=== PATIENT | male | born 1950 | race Caucasian/White ===

== ENCOUNTER 2024-04-25 19:56 | Inpatient (IN) | payer MEDICARE, MEDICAID ==
[~2024-04-25] VITALS: Ht 170.2 cm; Wt 113.9 kg
[2024-04-25 21:37] LABS: BASOPHILS % 0.8 % (0.0-2.0); DIFFERENTIAL COMMENT 0; EOSINOPHILS % 1.9 % (0.0-5.0); HEMATOCRIT. 27.3 % (42.0-52.0); HEMOGLOBIN. 8.3 g/dL (14.0-18.0); LYMPHOCYTES % 24.9 % (20.0-50.0); MEAN CORPUSCULAR HEMOGLOBIN 24.2 pg (28.0-32.0); MEAN CORPUSCULAR HGB CONC 30.3 g/dL (31.0-37.0); MEAN CORPUSCULAR VOLUME 79.6 fL (80.0-94.0); MONOCYTES % 7.7 % (2.0-8.0); NEUTROPHILS % 64.7 % (40.0-76.0); PLATELET 299 x1000/uL (130-400); RED BLOOD CELL COUNT 3.43 mill/uL (4.7-6.1); RED CELL DISTRIBUTION WIDTH 17.3 % (11.6-14.6); WHITE BLOOD COUNT 6.2 x1000/uL (4.5-11.0)
[2024-04-25 21:40] LABS: CHLORIDE 107 mEq/L (98-107); POTASSIUM 3.4 mEq/L (3.5-5.1); SODIUM 139 mEq/L (136-145)
[2024-04-25 21:41] LABS: CALCIUM 9.2 mg/dL (8.7-10.4); CARBON DIOXIDE 24 mEq/L (21-32)
[2024-04-25 21:46] LABS: GLUCOSE 120 mg/dL (70-105); UREA NITROGEN BLOOD 20 mg/dL (9-23)
[2024-04-25 21:48] LABS: TROPONIN I HIGH SENSITIVITY 4 ng/L (3.0-53)
[2024-04-26] MEDS ORDERED: DEXTROSE 50% WATER 50ML SYRINGE IV PRN (01:00)
[2024-04-26] MEDS ORDERED: IPRATROPIUM/ALBUTEROL 0.5-3(2.5)MG/3ML NEB HHN PRN (01:00)
[2024-04-26] MEDS ORDERED: ONDANSETRON HCL 4MG/2ML INJ IV PRN (01:00)
[2024-04-26] MEDS: POTASSIUM CHLORIDE 10MEQ TABLET SR PO NR (02:22)
[2024-04-26 05:43] LABS: IRON 30 ug/dL (65-175)
[2024-04-26 05:46] LABS: TOTAL IRON BINDING CAPACITY 324 ug/dl (250-425)
[2024-04-26 05:47] LABS: CREATINE KINASE 27 IU/L (46-171)
[2024-04-26 05:48] LABS: ETHANOL BLOOD < 10 mg/dL (<10)
[2024-04-26] MEDS: IOHEXOL-350 100 ML BOTTLE ONE (06:51)
[2024-04-26] MEDS: INSULIN LISPRO 100 UNITS/ML SUBCUT SCH (07:56)
[2024-04-26] MEDS: BLOOD SUGAR DIAGNOSTIC STRIP TEST SCH (07:56)
[2024-04-26 09:54] LABS: CARBON DIOXIDE 22 mEq/L (21-32); CHLORIDE 105 mEq/L (98-107); POTASSIUM 3.6 mEq/L (3.5-5.1); SODIUM 140 mEq/L (136-145)
[2024-04-26 09:55] LABS: CALCIUM 9.7 mg/dL (8.7-10.4)
[2024-04-26 09:59] LABS: CREATININE 0.9 mg/dL (0.6-1.3)
[2024-04-26 10:00] LABS: GLUCOSE 80 mg/dL (70-105); TRIGLYCERIDE 117 mg/dL (0-150); UREA NITROGEN BLOOD 20 mg/dL (9-23)
[2024-04-26 10:01] LABS: ALANINE AMINOTRANSFERASE 38 IU/L (10-49); ALBUMIN 4.4 g/dL (3.2-4.8); ASPARTATE AMINOTRANSFERASE 30 IU/L (<34); LDL CHOLESTEROL 82 mg/dL (5-100)
[2024-04-26 10:02] LABS: BILIRUBIN DIRECT 0.2 mg/dL (<=3.0); BILIRUBIN TOTAL 0.4 mg/dL (0.1-1.0); CHOLESTEROL 139 mg/dL (<200); HDL CHOLESTEROL 41 mg/dL (>55); PROTEIN TOTAL 7.2 g/dL (6.0-8.3)
[2024-04-26 10:03] LABS: CREATINE KINASE 27 IU/L (46-171); T4 FREE 1.32 ng/dL (0.89-1.76)
[2024-04-26 10:36] LABS: DIFFERENTIAL COMMENT 0; EOSINOPHILS % 2.2 % (0.0-5.0); HEMATOCRIT. 32.2 % (42.0-52.0); HEMOGLOBIN. 9.7 g/dL (14.0-18.0); LYMPHOCYTES % 31.8 % (20.0-50.0); MEAN CORPUSCULAR HEMOGLOBIN 23.5 pg (28.0-32.0); MEAN CORPUSCULAR HGB CONC 30.1 g/dL (31.0-37.0); MEAN PLATELET VOLUME 8.6 fl (7.4-10.4); MONOCYTES % 1.8 % (2.0-8.0); NEUTROPHILS % 63.2 % (40.0-76.0); PLATELET 408 x1000/uL (130-400); RED BLOOD CELL COUNT 4.12 mill/uL (4.7-6.1); RED CELL DISTRIBUTION WIDTH 17.6 % (11.6-14.6)
[2024-04-26] MEDS: ACETAMINOPHEN 325MG TABLET PO PRN (10:37)
[2024-04-26 17:45] VITALS: BP 133/70; PULSE 74; RESP 20; TEMP 97.6
[2024-04-26 20:00] VITALS: PULSE 72; RESP 19; TEMP 97.8
[2024-04-26] MEDS ORDERED: NALOXONE HCL 0.4MG/ML VIAL IV PRN (20:00)
[2024-04-26] MEDS: FAMOTIDINE 20MG TABLET PO SCH (20:43)
[2024-04-27] VITALS: BP 128/70; PULSE 78; RESP 18; TEMP 97
[2024-04-27 04:00] VITALS: BP 142/75; PULSE 75; RESP 19; TEMP 97.2
[2024-04-27] MEDS: HYDROCODONE/ACETAMINOPHEN 5/325MG TABLET PO PRN (05:33)
[2024-04-27 07:28] LABS: HEMOGLOBIN 9.1 g/dL (14.0-18.0); MEAN CORPUSCULAR HEMOGLOBIN 23.8 pg (28.0-32.0); MEAN CORPUSCULAR HGB CONC 30.5 g/dL (31.0-37.0); MEAN CORPUSCULAR VOLUME 78.2 fL (80.0-94.0); PLATELET 272 x1000/uL (130-400); RED BLOOD CELL COUNT 3.84 mill/uL (4.7-6.1); RED CELL DISTRIBUTION WIDTH 17.4 % (11.6-14.6); WHITE BLOOD COUNT 6.6 x1000/uL (4.5-11.0)
[2024-04-27 07:44] LABS: CHLORIDE 106 mEq/L (98-107); POTASSIUM 3.7 mEq/L (3.5-5.1); SODIUM 137 mEq/L (136-145)
[2024-04-27 07:45] LABS: CALCIUM 9.4 mg/dL (8.7-10.4); CARBON DIOXIDE 22 mEq/L (21-32)
[2024-04-27 07:50] LABS: GLUCOSE 79 mg/dL (70-105); UREA NITROGEN BLOOD 17 mg/dL (9-23)
[2024-04-27 07:52] LABS: ALANINE AMINOTRANSFERASE 34 IU/L (10-49); ASPARTATE AMINOTRANSFERASE 38 IU/L (<34); BILIRUBIN TOTAL 0.7 mg/dL (0.1-1.0); PROTEIN TOTAL 6.7 g/dL (6.0-8.3)
[2024-04-27 08:00] VITALS: BP 152/71; PULSE 82; RESP 20; TEMP 97.6
[2024-04-27 12:00] VITALS: BP 144/61; PULSE 76; RESP 18; TEMP 97.7
[2024-04-27 16:00] VITALS: BP 142/68; PULSE 84; RESP 18; TEMP 99
[2024-04-27] MEDS ORDERED: SENNOSIDES/DOCUSATE SOD 8.6/50MG TABLET PO PRN (17:45)
[2024-04-27] MEDS: MAGNESIUM HYDROXIDE 400MG/5ML 30ML UDC PO PRN (19:03)
[2024-04-27] MEDS: DEXAMETHASONE 4MG/ML 1ML VIAL IV SCH (19:07)
[2024-04-27 20:00] VITALS: BP 169/75; PULSE 80; RESP 18; TEMP 97.8
[2024-04-27] MEDS: CLONIDINE 0.1MG TABLET PO PRN (21:05)
[2024-04-27] MEDS: DEXT 5%/0.45% NACL 1000ML 1,000 ML IV SCH (21:06)
[2024-04-28] VITALS (13 sets, daily range): BP systolic 124–158; BP diastolic 57–82; PULSE 65–87; RESP 14–20; TEMP 94.2–98.1
[2024-04-28] MEDS ORDERED: LIDOCAINE HCL/EPINEPHRINE 1%-EPI 1:100,000 20 ML VIAL ONE ×3 (08:15→15:12)
[2024-04-28] MEDS ORDERED: THROMBIN (BOVINE) 5000 UNITS/VIAL TOP ONE (08:15)
[2024-04-28] MEDS ORDERED: GENTAMICIN SULF 40MG/ML 2ML VIAL ONE ×2 (08:15→14:58)
[2024-04-28] MEDS: DEXT 5%/LACTATED RINGERS 1,000 ML IV SCH (14:00)
[2024-04-28] MEDS ORDERED: CEFAZOLIN SODIUM 1000MG/VIAL IV SCH (14:00)
[2024-04-28] MEDS ORDERED: PHENYLEPHRINE HCL 10MG/ML 1ML IV ONE (14:12)
[2024-04-28] MEDS ORDERED: DEXAMETHASONE 4MG/ML 1ML VIAL ONE (14:12)
[2024-04-28] MEDS ORDERED: SUCCINYLCHOLINE CHLORIDE 200MG/10ML IV ONE (14:12)
[2024-04-28] MEDS ORDERED: LIDOCAINE HCL 1% 20ML VIAL ONE (14:12)
[2024-04-28] MEDS ORDERED: PROPOFOL 200MG/20ML VIAL IV ONE ×2 (14:12→15:20)
[2024-04-28] MEDS ORDERED: FENTANYL CITRATE/PF 50MCG/ML 2ML VIAL ONE ×3 (14:13→15:18)
[2024-04-28] MEDS ORDERED: CEFAZOLIN SODIUM 1000MG/VIAL ONE (15:17)
[2024-04-28] MEDS ORDERED: SUGAMMADEX SODIUM 200 MG/2 ML VIAL IV NR (16:00)
[2024-04-28] MEDS: CEFAZOLIN 1000MG PREMIX 50 ML IV SCH (16:00)
[2024-04-28] MEDS: NICARDIPINE 100 MG in SODIUM CHLORIDE 0.9% 60 ML IV PRN (17:00)
[2024-04-28] MEDS: MORPHINE SULFATE 4 MG/ML INJ (FOR IV/IM USE) IV PRN (17:02)
[2024-04-28] MEDS: DEXAMETHASONE 4MG/ML 1ML VIAL IV SCH (19:22)
[2024-04-29] VITALS (99 sets, daily range): BP systolic 104–164; BP diastolic 50–140; PULSE 74–91; RESP 13–24; TEMP 97.6–98.5
[2024-04-29 05:01] LABS: CHLORIDE 103 mEq/L (98-107); SODIUM 136 mEq/L (136-145)
[2024-04-29 05:02] LABS: CALCIUM 9.4 mg/dL (8.7-10.4); CARBON DIOXIDE 23 mEq/L (21-32)
[2024-04-29 05:06] LABS: CREATININE 0.7 mg/dL (0.6-1.3)
[2024-04-29 05:07] LABS: GLUCOSE 196 mg/dL (70-105); UREA NITROGEN BLOOD 17 mg/dL (9-23)
[2024-04-29 05:09] LABS: ALANINE AMINOTRANSFERASE 26 IU/L (10-49); ALBUMIN 3.9 g/dL (3.2-4.8); ASPARTATE AMINOTRANSFERASE 22 IU/L (<34); BILIRUBIN TOTAL 0.4 mg/dL (0.1-1.0); PROTEIN TOTAL 6.4 g/dL (6.0-8.3)
[2024-04-29 05:38] LABS: BASOPHILS % 0.1 % (0.0-2.0); DIFFERENTIAL COMMENT 0; HEMATOCRIT. 23.9 % (42.0-52.0); HEMOGLOBIN. 7.6 g/dL (14.0-18.0); LYMPHOCYTES % 7.8 % (20.0-50.0); MEAN CORPUSCULAR HEMOGLOBIN 23.5 pg (28.0-32.0); MEAN CORPUSCULAR HGB CONC 31.8 g/dL (31.0-37.0); MEAN PLATELET VOLUME 8.2 fl (7.4-10.4); MONOCYTES % 3.3 % (2.0-8.0); NEUTROPHILS % 88.8 % (40.0-76.0); PLATELET 285 x1000/uL (130-400); RED BLOOD CELL COUNT 3.22 mill/uL (4.7-6.1); WHITE BLOOD COUNT 5.4 x1000/uL (4.5-11.0)
[2024-04-29] MEDS ORDERED: HYDRALAZINE 20MG/ML VIAL IV PRN (11:15)
[2024-04-29] MEDS: AMLODIPINE 2.5MG TABLET PO SCH (11:59)
[2024-04-29] MEDS: AMLODIPINE 5MG TABLET PO NR (12:48)
[2024-04-29] MEDS: AMLODIPINE 2.5MG TABLET PO NR (12:48)
[2024-04-29] MEDS: HYDRALAZINE 20MG/ML VIAL IV PRN (14:24)
[2024-04-30] VITALS (92 sets, daily range): BP systolic 107–149; BP diastolic 57–120; PULSE 58–86; RESP 9–26; TEMP 97.2–98.7
[2024-04-30 05:40] LABS: CARBON DIOXIDE 22 mEq/L (21-32); CHLORIDE 104 mEq/L (98-107); POTASSIUM 3.7 mEq/L (3.5-5.1); SODIUM 136 mEq/L (136-145)
[2024-04-30 05:45] LABS: CREATININE 0.9 mg/dL (0.6-1.3)
[2024-04-30 05:46] LABS: GLUCOSE 200 mg/dL (70-105); UREA NITROGEN BLOOD 23 mg/dL (9-23)
[2024-04-30 06:50] LABS: HEMATOCRIT 23.8 % (42.0-52.0); HEMOGLOBIN 7.6 g/dL (14.0-18.0); MEAN CORPUSCULAR HEMOGLOBIN 23.9 pg (28.0-32.0); MEAN CORPUSCULAR HGB CONC 31.8 g/dL (31.0-37.0); MEAN CORPUSCULAR VOLUME 75.1 fL (80.0-94.0); PLATELET 262 x1000/uL (130-400); RED BLOOD CELL COUNT 3.16 mill/uL (4.7-6.1); RED CELL DISTRIBUTION WIDTH 17.3 % (11.6-14.6); WHITE BLOOD COUNT 5.8 x1000/uL (4.5-11.0)
[2024-04-30] MEDS: AMLODIPINE 10MG TABLET PO SCH (08:28)
[2024-04-30] MEDS: CARVEDILOL 6.25 MG TABLET PO SCH (12:03)
[2024-04-30] MEDS: LOSARTAN 25 MG TABLET PO SCH (12:04)
[2024-05-01] VITALS: BP 146/72; PULSE 71; RESP 18; TEMP 97.2
[2024-05-01 04:00] VITALS: BP 129/77; PULSE 83; RESP 20; TEMP 97.6
[2024-05-01 08:00] VITALS: BP 156/74; PULSE 65; RESP 18; TEMP 98.6
[2024-05-01 12:00] VITALS: BP_SYST 122; BP_SYST 147; BP_DIAS 70; BP_DIAS 75; PULSE 59; PULSE 76; RESP 18; RESP 19; TEMP 98.1; TEMP 98.3
[2024-05-01 16:00] VITALS: BP 137/64; PULSE 60; RESP 19; TEMP 97.5
[2024-05-01] MEDS ORDERED: HYDRALAZINE 10 MG in SODIUM CHLORIDE 0.9% 49.5 ML IV PRN (16:00)
[2024-05-01 17:23] LABS: HEMATOCRIT 26.2 % (42.0-52.0); HEMOGLOBIN 8.3 g/dL (14.0-18.0); MEAN CORPUSCULAR HEMOGLOBIN 23.6 pg (28.0-32.0); MEAN CORPUSCULAR HGB CONC 31.5 g/dL (31.0-37.0); MEAN CORPUSCULAR VOLUME 74.9 fL (80.0-94.0); PLATELET 285 x1000/uL (130-400); RED CELL DISTRIBUTION WIDTH 17.2 % (11.6-14.6); WHITE BLOOD COUNT 6.6 x1000/uL (4.5-11.0)
[2024-05-01 17:38] LABS: CHLORIDE 105 mEq/L (98-107); POTASSIUM 3.8 mEq/L (3.5-5.1); SODIUM 137 mEq/L (136-145)
[2024-05-01 17:39] LABS: CARBON DIOXIDE 24 mEq/L (21-32)
[2024-05-01 17:40] LABS: CALCIUM 9.1 mg/dL (8.7-10.4)
[2024-05-01 17:44] LABS: CREATININE 0.9 mg/dL (0.6-1.3); GLUCOSE 148 mg/dL (70-105); UREA NITROGEN BLOOD 27 mg/dL (9-23)
[2024-05-01 20:00] VITALS: BP 141/69; PULSE 65; RESP 19; TEMP 97.9
[2024-05-02] VITALS: BP 161/79; PULSE 68; RESP 20; TEMP 98
[2024-05-02 04:00] VITALS: BP 168/78; PULSE 70; RESP 19; TEMP 98.8
[2024-05-02 06:40] LABS: HEMATOCRIT 27.9 % (42.0-52.0); HEMOGLOBIN 8.9 g/dL (14.0-18.0); MEAN CORPUSCULAR HEMOGLOBIN 23.9 pg (28.0-32.0); MEAN CORPUSCULAR HGB CONC 31.8 g/dL (31.0-37.0); PLATELET 295 x1000/uL (130-400); RED BLOOD CELL COUNT 3.72 mill/uL (4.7-6.1); WHITE BLOOD COUNT 8.8 x1000/uL (4.5-11.0)
[2024-05-02 06:50] LABS: CARBON DIOXIDE 25 mEq/L (21-32); CHLORIDE 107 mEq/L (98-107); POTASSIUM 3.9 mEq/L (3.5-5.1); SODIUM 141 mEq/L (136-145)
[2024-05-02 06:51] LABS: CALCIUM 9.1 mg/dL (8.7-10.4)
[2024-05-02 06:56] LABS: CREATININE 0.8 mg/dL (0.6-1.3); GLUCOSE 101 mg/dL (70-105); UREA NITROGEN BLOOD 25 mg/dL (9-23)
[2024-05-02 08:00] VITALS: BP 155/74; PULSE 65; RESP 17; TEMP 97.5
[2024-05-02] MEDS: FERROUS SULFATE 325MG TABLET PO SCH (10:28)
[2024-05-02 12:00] VITALS: BP 144/56; PULSE 75; RESP 18; TEMP 98.7
[2024-05-02 16:00] VITALS: BP 142/64; PULSE 66; RESP 18; TEMP 97.8
[2024-05-02 20:00] VITALS: BP 140/66; PULSE 75; RESP 18; TEMP 98.8
[2024-05-02] MEDS: HYDROXYZINE 10MG TABLET PO PRN (21:48)
[2024-05-03] VITALS: BP 147/69; PULSE 63; RESP 20; TEMP 97.8
[2024-05-03 04:00] VITALS: BP 150/67; PULSE 61; RESP 18; TEMP 98.9
[2024-05-03 07:18] LABS: CHLORIDE 107 mEq/L (98-107); POTASSIUM 3.9 mEq/L (3.5-5.1); SODIUM 139 mEq/L (136-145)
[2024-05-03 07:19] LABS: CALCIUM 8.6 mg/dL (8.7-10.4); CARBON DIOXIDE 25 mEq/L (21-32)
[2024-05-03 07:21] LABS: HEMATOCRIT 28.6 % (42.0-52.0); HEMOGLOBIN 8.9 g/dL (14.0-18.0); MEAN CORPUSCULAR HEMOGLOBIN 23.5 pg (28.0-32.0); MEAN CORPUSCULAR HGB CONC 31.2 g/dL (31.0-37.0); MEAN CORPUSCULAR VOLUME 75.4 fL (80.0-94.0); PLATELET 303 x1000/uL (130-400); RED BLOOD CELL COUNT 3.79 mill/uL (4.7-6.1); RED CELL DISTRIBUTION WIDTH 17.1 % (11.6-14.6); WHITE BLOOD COUNT 8.6 x1000/uL (4.5-11.0)
[2024-05-03 07:24] LABS: CREATININE 0.6 mg/dL (0.6-1.3); GLUCOSE 71 mg/dL (70-105); UREA NITROGEN BLOOD 21 mg/dL (9-23)
[2024-05-03 08:00] VITALS: BP 149/58; PULSE 66; RESP 18; TEMP 98.6
[2024-05-03 12:00] VITALS: BP 97/52; PULSE 66; RESP 18; TEMP 97.5
[2024-05-03 16:00] VITALS: BP 122/56; PULSE 67; RESP 17; TEMP 97.9
[2024-05-03 17:06] VITALS: BP 122/56; PULSE 67; TEMP 97.9; O2SAT 98
== END 2024-05-03 17:41 | DRG 471 ==
LOC: ER 19:56 → 5WST 22:23 → EDBEDREQTM 22:59 → EDBEDREQ 22:59 → 5WST 04-26 08:20 → 8WST 04-26 17:12 → MICUSO 04-28 16:58 → 6EST 04-30 23:50
PROVIDERS: ADMIT Internal Medicine; ATTEND Internal Medicine
PROC: 0RG2071 Fusion of 2 or more Cervical Vertebral Joints with Autologous Tissue Substitute, Posterior Approach, Posterior Column, Open Approach (ICD-10-PCS; principal; 2024-04-28)
DX: M48.02 Spinal stenosis, cervical region (principal); G82.50 Quadriplegia, unspecified; G99.2 Myelopathy in diseases classified elsewhere; D50.9 Iron deficiency anemia, unspecified; E11.65 Type 2 diabetes mellitus with hyperglycemia; F41.9 Anxiety disorder, unspecified; F32.A Depression, unspecified; K59.00 Constipation, unspecified; Z20.822 Contact with and (suspected) exposure to COVID-19; S80.02XA Contusion of left knee, initial encounter; S80.01XA Contusion of right knee, initial encounter; I25.10 Atherosclerotic heart disease of native coronary artery without angina pectoris; R53.82 Chronic fatigue, unspecified; W18.39XA Other fall on same level, initial encounter; E78.5 Hyperlipidemia, unspecified; M54.12 Radiculopathy, cervical region; E87.6 Hypokalemia; G89.29 Other chronic pain; I10 Essential (primary) hypertension; M54.50 Low back pain, unspecified; Y93.89 Activity, other specified; Y92.89 Other specified places as the place of occurrence of the external cause; Z74.01 Bed confinement status; Y99.8 Other external cause status; Z99.3 Dependence on wheelchair; Z63.4 Disappearance and death of family member; Z86.73 Personal history of transient ischemic attack (TIA), and cerebral infarction without residual deficits
CPT/HCPCS: 36415; 71045; 71275; 72040; 72141; 73560; 74018; 76000; 80048; 80053; 80061; 80076; 80320; 82550; 82728; 82962; 83036; 83540; 83550; 83735; 83880; 84439; 84443; 84484; 85025; 85027; 85379; 86850; 86900; 86920; 87426; 88304; 88311; 93005; 93970; 97110; 97112; 97162; 97166; 97168; 97530; 97535; 99285; A6261; G0378; J0330; J0360; J0690; J1100; J1580; J1815; J2270; J2704; J3010; J3490; J7050; J7121; L0172; Q9967; C1713; G0480

== ENCOUNTER 2024-05-03 18:15 | Inpatient (IN) | payer MEDICARE, MEDICAID ==
[~2024-05-03] VITALS: Ht 182.9 cm; Wt 112.9 kg
[2024-05-03] MEDS ORDERED: ONDANSETRON HCL 4MG/2ML INJ IV PRN (18:45)
[2024-05-03] MEDS ORDERED: HYDRALAZINE 10 MG in SODIUM CHLORIDE 0.9% 49.5 ML IV PRN (18:45)
[2024-05-03] MEDS ORDERED: NALOXONE HCL 0.4MG/ML 1ML VIAL IV PRN (18:45)
[2024-05-03] MEDS ORDERED: DEXTROSE 50% WATER 50ML SYRINGE IV PRN (18:45)
[2024-05-03] MEDS ORDERED: CLONIDINE 0.1MG TABLET PO PRN (19:00)
[2024-05-03] MEDS ORDERED: HYDROXYZINE 10MG TABLET PO PRN (19:00)
[2024-05-03 19:30] VITALS: BP 127/60; PULSE 71; RESP 18; TEMP 36.696
[2024-05-03 20:00] VITALS: BP 127/58; PULSE 71; RESP 18; TEMP 36.6696; O2SAT 95
[2024-05-03] MEDS: BLOOD SUGAR DIAGNOSTIC STRIP TEST SCH (21:00)
[2024-05-03] MEDS: CARVEDILOL 6.25 MG TABLET PO SCH (21:00)
[2024-05-03] MEDS: FAMOTIDINE 20MG TABLET PO SCH (22:43)
[2024-05-03] MEDS: DEXT 5%/LACTATED RINGERS 1,000 ML IV SCH (22:46)
[2024-05-04] MEDS: LOSARTAN 25 MG TABLET PO SCH (09:01)
[2024-05-04] MEDS: AMLODIPINE 10MG TABLET PO SCH (09:02)
[2024-05-04 09:47] LABS: BASOPHILS % 0.1 % (0.0-2.0); DIFFERENTIAL COMMENT 0; EOSINOPHILS % 1.3 % (0.0-5.0); HEMATOCRIT. 26.4 % (42.0-52.0); HEMOGLOBIN. 8.5 g/dL (14.0-18.0); LYMPHOCYTES % 16.4 % (20.0-50.0); MEAN CORPUSCULAR HEMOGLOBIN 23.7 pg (28.0-32.0); MEAN CORPUSCULAR HGB CONC 32.1 g/dL (31.0-37.0); MEAN CORPUSCULAR VOLUME 73.8 fL (80.0-94.0); MEAN PLATELET VOLUME 8.2 fl (7.4-10.4); MONOCYTES % 5.7 % (2.0-8.0); NEUTROPHILS % 76.5 % (40.0-76.0); PLATELET 346 x1000/uL (130-400); RED BLOOD CELL COUNT 3.58 mill/uL (4.7-6.1); WHITE BLOOD COUNT 9.3 x1000/uL (4.5-11.0)
[2024-05-04 09:55] LABS: CHLORIDE 102 mEq/L (98-107); POTASSIUM 3.4 mEq/L (3.5-5.1); SODIUM 134 mEq/L (136-145)
[2024-05-04 09:56] LABS: CALCIUM 8.4 mg/dL (8.7-10.4); CARBON DIOXIDE 26 mEq/L (21-32)
[2024-05-04 10:01] LABS: CREATININE 0.7 mg/dL (0.6-1.3); GLUCOSE 98 mg/dL (70-105); UREA NITROGEN BLOOD 13 mg/dL (9-23)
[2024-05-04 10:03] LABS: ALANINE AMINOTRANSFERASE 165 IU/L (10-49); ALBUMIN 3.6 g/dL (3.2-4.8); ASPARTATE AMINOTRANSFERASE 39 IU/L (<34); BILIRUBIN TOTAL 0.9 mg/dL (0.1-1.0)
[2024-05-04 10:04] LABS: PROTEIN TOTAL 5.7 g/dL (6.0-8.3)
[2024-05-04] MEDS: ACETAMINOPHEN 325MG TABLET PO PRN (16:59)
[2024-05-04] MEDS: POTASSIUM CHLORIDE 20MEQ TABLET SR PO NR (17:15)
[2024-05-04 18:25] LABS: AMMONIA 18 uMol/L (<32)
[2024-05-04 20:00] VITALS: BP 108/44; PULSE 67; RESP 18; TEMP 36.78072; O2SAT 95
[2024-05-05] MEDS: MELATONIN 3MG TABLET PO SCH (01:00)
[2024-05-05 07:26] LABS: CHLORIDE 103 mEq/L (98-107); POTASSIUM 3.8 mEq/L (3.5-5.1); SODIUM 134 mEq/L (136-145)
[2024-05-05 07:28] LABS: CALCIUM 8.6 mg/dL (8.7-10.4); CARBON DIOXIDE 23 mEq/L (21-32)
[2024-05-05 07:31] LABS: UREA NITROGEN BLOOD 18 mg/dL (9-23)
[2024-05-05 07:32] LABS: BASOPHILS % 0.1 % (0.0-2.0); DIFFERENTIAL COMMENT 0; EOSINOPHILS % 1.7 % (0.0-5.0); HEMATOCRIT. 24.1 % (42.0-52.0); HEMOGLOBIN. 7.6 g/dL (14.0-18.0); LYMPHOCYTES % 16.7 % (20.0-50.0); MEAN CORPUSCULAR HEMOGLOBIN 23.5 pg (28.0-32.0); MEAN CORPUSCULAR HGB CONC 31.3 g/dL (31.0-37.0); MEAN CORPUSCULAR VOLUME 74.9 fL (80.0-94.0); MEAN PLATELET VOLUME 8.4 fl (7.4-10.4); MONOCYTES % 8.4 % (2.0-8.0); NEUTROPHILS % 73.1 % (40.0-76.0); PLATELET 280 x1000/uL (130-400); RED BLOOD CELL COUNT 3.22 mill/uL (4.7-6.1); RED CELL DISTRIBUTION WIDTH 17.1 % (11.6-14.6)
[2024-05-05 07:33] LABS: CREATININE 0.9 mg/dL (0.6-1.3)
[2024-05-05 07:34] LABS: ALBUMIN 3.3 g/dL (3.2-4.8); GLUCOSE 108 mg/dL (70-105)
[2024-05-05 07:35] LABS: ALANINE AMINOTRANSFERASE 115 IU/L (10-49); ASPARTATE AMINOTRANSFERASE 62 IU/L (<34)
[2024-05-05 07:36] LABS: BILIRUBIN DIRECT 0.3 mg/dL (<=3.0); BILIRUBIN TOTAL 0.7 mg/dL (0.1-1.0); PHOSPHORUS 2.9 mg/dL (2.5-4.9); PROTEIN TOTAL 5.5 g/dL (6.0-8.3)
[2024-05-05 08:00] VITALS: BP 127/49; PULSE 71; RESP 19; TEMP 36.3918; O2SAT 98
[2024-05-05] MEDS: FERROUS SULFATE 325MG TABLET PO SCH (08:24)
[2024-05-05 10:15] VITALS: BP 118/58; PULSE 73
[2024-05-05 20:00] VITALS: BP 127/59; PULSE 69; RESP 17; TEMP 37.00296; O2SAT 95
[2024-05-06 07:22] LABS: CLARITY URINE CLOUDY (CLEAR); COLOR URINE YELLOW (YELLOW); GLUCOSE URINE NEGATIVE (NEGATIVE); PROTEIN URINE NEGATIVE (NEGATIVE); SPECIFIC GRAVITY URINE 1.012 (1.005-1.030)
[2024-05-06 07:23] LABS: KETONES URINE NEGATIVE (NEGATIVE); LEUKOCYTE ESTERASE URINE 2+ (NEGATIVE); NITRITE URINE NEGATIVE (NEGATIVE); OCCULT BLOOD URINE NEGATIVE (NEGATIVE)
[2024-05-06 07:27] LABS: SQUAMOUS EPITHELIAL CELL URINE FEW /lpf (RARE/1+); WBC URINE 25-50 /hpf (0-2)
[2024-05-06 07:28] LABS: BACTERIA URINE 4+; RBC URINE 0-2 /hpf (0-2)
[2024-05-06 08:00] VITALS: BP 149/62; PULSE 71; RESP 19; TEMP 36.55848; O2SAT 97
[2024-05-06] MEDS ORDERED: NALOXONE HCL 0.4MG/ML VIAL IV PRN (16:15)
[2024-05-06] MEDS: TRAMADOL HCL/ACETAMINOPHEN 37.5/325MG TABLET PO PRN (16:37)
[2024-05-06 20:00] VITALS: BP 109/53; PULSE 70; RESP 20; TEMP 35.78064; O2SAT 95
[2024-05-07 08:00] VITALS: BP 128/51; PULSE 72; RESP 20; TEMP 36.6696; O2SAT 95
[2024-05-07 20:00] VITALS: BP 101/48; PULSE 70; RESP 20; TEMP 36.114; O2SAT 96
[2024-05-08 08:00] VITALS: BP 135/58; PULSE 71; RESP 17; TEMP 36.33624; O2SAT 95
[2024-05-08 20:00] VITALS: BP 105/52; PULSE 71; RESP 18; TEMP 36.33624; O2SAT 100
[2024-05-09 08:00] VITALS: BP 125/57; PULSE 67; RESP 18; TEMP 36.3918; O2SAT 95
[2024-05-09] MEDS ORDERED: AMLODIPINE 10MG TABLET PO SCH (12:00)
[2024-05-09 20:00] VITALS: BP 120/59; PULSE 67; RESP 18; TEMP 36.89184; O2SAT 95
[2024-05-09] MEDS: LOSARTAN 25 MG TABLET PO SCH (20:47)
[2024-05-10] MEDS: MAGNESIUM HYDROXIDE 400MG/5ML 30ML UDC PO PRN (06:45)
[2024-05-10 07:55] VITALS: BP 118/52; PULSE 68; RESP 18; TEMP 36.6696; O2SAT 97
[2024-05-10 08:26] VITALS: BP 104/53; PULSE 69
[2024-05-10] MEDS: AMLODIPINE 5MG TABLET PO SCH (08:27)
[2024-05-10 14:24] VITALS: BP 111/54
[2024-05-10 20:00] VITALS: BP 130/53; PULSE 80; RESP 18; TEMP 37.55856; O2SAT 94
[2024-05-11] MEDS ORDERED: NA PHOS,M-B/NA PHOS,DI-BA ENEMA 118ML PR PRN (06:00)
[2024-05-11 08:00] VITALS: BP 132/58; PULSE 61; RESP 20; TEMP 37.61412; O2SAT 96
[2024-05-11] MEDS: SENNOSIDES/DOCUSATE SOD 8.6/50MG TABLET PO PRN (08:10)
[2024-05-11 12:56] LABS: DIFFERENTIAL COMMENT 0; LYMPHOCYTES % 16.7 % (20.0-50.0); MEAN CORPUSCULAR HEMOGLOBIN 22.6 pg (28.0-32.0); MEAN CORPUSCULAR HGB CONC 31.6 g/dL (31.0-37.0); MEAN CORPUSCULAR VOLUME 71.7 fL (80.0-94.0); MEAN PLATELET VOLUME 7.8 fl (7.4-10.4); MONOCYTES % 9.1 % (2.0-8.0); NEUTROPHILS % 70.2 % (40.0-76.0); PLATELET 388 x1000/uL (130-400); RED BLOOD CELL COUNT 2.84 mill/uL (4.7-6.1); RED CELL DISTRIBUTION WIDTH 17.2 % (11.6-14.6); WHITE BLOOD COUNT 5.1 x1000/uL (4.5-11.0)
[2024-05-11 13:03] LABS: CHLORIDE 96 mEq/L (98-107); POTASSIUM 3.6 mEq/L (3.5-5.1); SODIUM 126 mEq/L (136-145)
[2024-05-11 13:04] LABS: CARBON DIOXIDE 26 mEq/L (21-32)
[2024-05-11 13:05] LABS: CALCIUM 8.5 mg/dL (8.7-10.4)
[2024-05-11 13:09] LABS: UREA NITROGEN BLOOD 7 mg/dL (9-23)
[2024-05-11 13:10] LABS: CREATININE 0.6 mg/dL (0.6-1.3); GLUCOSE 98 mg/dL (70-105)
[2024-05-11 13:11] LABS: ALANINE AMINOTRANSFERASE 59 IU/L (10-49); ASPARTATE AMINOTRANSFERASE 43 IU/L (<34)
[2024-05-11 13:12] LABS: ALBUMIN 3.3 g/dL (3.2-4.8); BILIRUBIN DIRECT 0.2 mg/dL (<=3.0); BILIRUBIN TOTAL 0.5 mg/dL (0.1-1.0); PHOSPHORUS 3.7 mg/dL (2.5-4.9); PROTEIN TOTAL 5.7 g/dL (6.0-8.3)
[2024-05-11 13:33] LABS: HEMATOCRIT. 20.3 % (42.0-52.0); HEMOGLOBIN. 6.4 g/dL (14.0-18.0)
[2024-05-11] MEDS: SENNOSIDES/DOCUSATE SOD 8.6/50MG TABLET PO SCH (15:45)
[2024-05-11] MEDS: POLYETHYLENE GLYCOL 3350 (17GM) 1 DOSE PACK PO SCH (16:48)
[2024-05-11 17:45] LABS: HEMOGLOBIN 6.6 g/dL (14.0-18.0)
[2024-05-11 17:46] LABS: HEMATOCRIT 20.4 % (42.0-52.0)
[2024-05-11 20:00] VITALS: BP 117/45; PULSE 78; RESP 20; TEMP 37.05852; O2SAT 98
[2024-05-11] MEDS: NITROFURANTOIN 100MG M/M CAPSULE PO SCH (22:15)
[2024-05-11] MEDS: MELATONIN 3MG TABLET PO SCH (22:16)
[2024-05-11 23:15] VITALS: BP 154/70; PULSE 76; RESP 18; TEMP 36.9474
[2024-05-12 00:15] VITALS: BP 142/69; PULSE 80; RESP 18; TEMP 37.05852
[2024-05-12 00:21] VITALS: BP 142/69; PULSE 80; RESP 19; TEMP 37.05852
[2024-05-12 08:07] VITALS: BP 146/48; PULSE 73; RESP 18; TEMP 36.78072; O2SAT 96
[2024-05-12 08:16] LABS: HEMATOCRIT 22.3 % (42.0-52.0); HEMOGLOBIN 7.2 g/dL (14.0-18.0)
[2024-05-12 20:00] VITALS: BP 130/48; PULSE 80; RESP 20; TEMP 37.66968; O2SAT 95
[2024-05-13 08:27] VITALS: BP 124/59; PULSE 80; RESP 20; TEMP 36.44736; O2SAT 96
[2024-05-13 20:00] VITALS: BP 121/51; PULSE 79; RESP 19; TEMP 35.8362; O2SAT 96
[2024-05-13] MEDS: ZOLPIDEM TARTRATE 5MG TABLET PO NR (23:37)
[2024-05-14 08:00] VITALS: BP 134/58; PULSE 83; RESP 22; TEMP 36.22512; O2SAT 97
[2024-05-14 20:00] VITALS: BP 135/54; PULSE 84; RESP 19; TEMP 36.3918; O2SAT 95
[2024-05-15 08:00] VITALS: BP 119/52; PULSE 74; RESP 18; TEMP 36.3918; O2SAT 95
[2024-05-15 20:00] VITALS: BP 107/70; PULSE 89; RESP 18; TEMP 37.2252; O2SAT 95
[2024-05-16 06:21] LABS: CARBON DIOXIDE 25 mEq/L (21-32); CHLORIDE 92 mEq/L (98-107); POTASSIUM 3.2 mEq/L (3.5-5.1); SODIUM 125 mEq/L (136-145)
[2024-05-16 06:22] LABS: CALCIUM 9.2 mg/dL (8.7-10.4)
[2024-05-16 06:26] LABS: CREATININE 0.5 mg/dL (0.6-1.3)
[2024-05-16 06:27] LABS: GLUCOSE 117 mg/dL (70-105); UREA NITROGEN BLOOD 7 mg/dL (9-23)
[2024-05-16 06:29] LABS: PHOSPHORUS 4.3 mg/dL (2.5-4.9)
[2024-05-16 06:58] LABS: DIFFERENTIAL COMMENT 0; EOSINOPHILS % 3.5 % (0.0-5.0); LYMPHOCYTES % 20.6 % (20.0-50.0); MEAN CORPUSCULAR HEMOGLOBIN 22.6 pg (28.0-32.0); MEAN CORPUSCULAR HGB CONC 31.6 g/dL (31.0-37.0); MEAN CORPUSCULAR VOLUME 71.5 fL (80.0-94.0); MEAN PLATELET VOLUME 7.5 fl (7.4-10.4); MONOCYTES % 12.6 % (2.0-8.0); NEUTROPHILS % 62.3 % (40.0-76.0); PLATELET 465 x1000/uL (130-400); RED BLOOD CELL COUNT 2.91 mill/uL (4.7-6.1); RED CELL DISTRIBUTION WIDTH 17.3 % (11.6-14.6); WHITE BLOOD COUNT 4.8 x1000/uL (4.5-11.0)
[2024-05-16 08:00] VITALS: BP 124/51; PULSE 79; RESP 18; TEMP 36.61404; O2SAT 96
[2024-05-16] MEDS: MAGNESIUM 2 G PREMIX 50 ML IV NR (08:00)
[2024-05-16 08:07] LABS: HEMATOCRIT. 20.8 % (42.0-52.0); HEMOGLOBIN. 6.6 g/dL (14.0-18.0)
[2024-05-16 11:44] LABS: LACTATE DEHYDROGENASE 373 IU/L (120-246)
[2024-05-16 11:45] LABS: ALANINE AMINOTRANSFERASE 48 IU/L (10-49); ALBUMIN 3.3 g/dL (3.2-4.8); ASPARTATE AMINOTRANSFERASE 72 IU/L (<34); BILIRUBIN DIRECT 0.3 mg/dL (<=3.0); BILIRUBIN TOTAL 0.6 mg/dL (0.1-1.0); PROTEIN TOTAL 6.2 g/dL (6.0-8.3)
[2024-05-16] MEDS: POTASSIUM CHLORIDE 20MEQ TABLET SR PO NR (12:43)
[2024-05-16 13:45] LABS: HEMATOCRIT 19.9 % (42.0-52.0); HEMOGLOBIN 6.4 g/dL (14.0-18.0)
[2024-05-16] MEDS ORDERED: LIDOCAINE HCL 1% 10 MG/ML 10ML VIAL ONE (13:50)
[2024-05-16 20:00] VITALS: BP 131/57; PULSE 93; RESP 20; TEMP 37.16964; O2SAT 96
[2024-05-16 22:24] VITALS: BP 131/58; PULSE 91; RESP 21; TEMP 36.9474
[2024-05-16 22:45] VITALS: BP 133/53; PULSE 95; RESP 21; TEMP 37.2252
[2024-05-16 23:44] VITALS: BP 119/54; PULSE 87; RESP 21; TEMP 37.16964
[2024-05-16 23:45] VITALS: BP 119/58; PULSE 84; RESP 21; TEMP 37.00296
[2024-05-17 00:50] VITALS: BP 121/62; PULSE 82; RESP 21; TEMP 37.00296
[2024-05-17 01:30] VITALS: BP 133/67; PULSE 80; RESP 20; TEMP 37.00296
[2024-05-17 08:00] VITALS: BP 134/64; PULSE 79; RESP 18; TEMP 36.28068; O2SAT 96
[2024-05-17 11:09] LABS: BASOPHILS % 0.9 % (0.0-2.0); CHLORIDE 91 mEq/L (98-107); DIFFERENTIAL COMMENT 0; EOSINOPHILS % 3.9 % (0.0-5.0); HEMATOCRIT. 23.2 % (42.0-52.0); HEMOGLOBIN. 7.5 g/dL (14.0-18.0); LYMPHOCYTES % 20.5 % (20.0-50.0); MEAN CORPUSCULAR HGB CONC 32.4 g/dL (31.0-37.0); MEAN PLATELET VOLUME 7.4 fl (7.4-10.4); MONOCYTES % 10.7 % (2.0-8.0); PLATELET 476 x1000/uL (130-400); POTASSIUM 3.2 mEq/L (3.5-5.1); RED BLOOD CELL COUNT 3.14 mill/uL (4.7-6.1); SODIUM 123 mEq/L (136-145); WHITE BLOOD COUNT 4.3 x1000/uL (4.5-11.0)
[2024-05-17 11:10] LABS: CALCIUM 8.7 mg/dL (8.7-10.4); CARBON DIOXIDE 24 mEq/L (21-32)
[2024-05-17 11:15] LABS: CREATININE 0.5 mg/dL (0.6-1.3); GLUCOSE 137 mg/dL (70-105); UREA NITROGEN BLOOD 6 mg/dL (9-23)
[2024-05-17 11:17] LABS: PHOSPHORUS 3.3 mg/dL (2.5-4.9)
[2024-05-17] MEDS: MAGNESIUM OXIDE 400MG TABLET PO SCH (13:23)
[2024-05-17] MEDS: MAGNESIUM 2 G PREMIX 50 ML IV NR (14:29)
[2024-05-17] MEDS: POTASSIUM CHLORIDE 20MEQ TABLET SR PO NR (17:37)
[2024-05-17 19:04] LABS: IRON 31 ug/dL (65-175)
[2024-05-17 19:07] LABS: TOTAL IRON BINDING CAPACITY 520 ug/dl (250-425)
[2024-05-17 20:00] VITALS: BP 138/60; PULSE 80; RESP 19; TEMP 36.6696; O2SAT 98
[2024-05-18] MEDS: IRON SUCROSE COMPLEX IV SCH (01:50)
[2024-05-18] MEDS: SODIUM CHLORIDE 0.9% IV SCH (01:50)
[2024-05-18 08:00] VITALS: BP 133/63; PULSE 85; RESP 20; TEMP 36.9474; O2SAT 97
[2024-05-18] MEDS: TRAMADOL HCL/ACETAMINOPHEN 37.5/325MG TABLET PO PRN (08:33)
[2024-05-18 08:45] LABS: BASOPHILS % 1.2 % (0.0-2.0); DIFFERENTIAL COMMENT 0; EOSINOPHILS % 3.8 % (0.0-5.0); HEMATOCRIT. 23.6 % (42.0-52.0); HEMOGLOBIN. 7.7 g/dL (14.0-18.0); LYMPHOCYTES % 22.2 % (20.0-50.0); MEAN CORPUSCULAR HEMOGLOBIN 23.9 pg (28.0-32.0); MEAN CORPUSCULAR HGB CONC 32.5 g/dL (31.0-37.0); MEAN CORPUSCULAR VOLUME 73.6 fL (80.0-94.0); MEAN PLATELET VOLUME 7.3 fl (7.4-10.4); NEUTROPHILS % 60.8 % (40.0-76.0); PLATELET 516 x1000/uL (130-400); RED BLOOD CELL COUNT 3.21 mill/uL (4.7-6.1); RED CELL DISTRIBUTION WIDTH 20.4 % (11.6-14.6); WHITE BLOOD COUNT 5.3 x1000/uL (4.5-11.0)
[2024-05-18 08:54] LABS: CARBON DIOXIDE 25 mEq/L (21-32); CHLORIDE 91 mEq/L (98-107); POTASSIUM 3.8 mEq/L (3.5-5.1); SODIUM 121 mEq/L (136-145)
[2024-05-18 08:55] LABS: CALCIUM 8.6 mg/dL (8.7-10.4)
[2024-05-18 08:59] LABS: IRON 196 ug/dL (65-175)
[2024-05-18 09:00] LABS: CREATININE 0.4 mg/dL (0.6-1.3); GLUCOSE 92 mg/dL (70-105); UREA NITROGEN BLOOD 6 mg/dL (9-23)
[2024-05-18 09:02] LABS: PHOSPHORUS 3.5 mg/dL (2.5-4.9); TOTAL IRON BINDING CAPACITY 431 ug/dl (250-425)
[2024-05-18 20:00] VITALS: BP 114/44; PULSE 89; RESP 19; TEMP 37.00296; O2SAT 99
[2024-05-18] MEDS: SODIUM CHLORIDE 0.9% 1,000 ML IV SCH (21:09)
[2024-05-18] MEDS: QUETIAPINE FUMARATE 25MG TABLET PO SCH (21:10)
[2024-05-19 07:20] LABS: CARBON DIOXIDE 22 mEq/L (21-32); CHLORIDE 91 mEq/L (98-107); POTASSIUM 3.8 mEq/L (3.5-5.1); SODIUM 121 mEq/L (136-145)
[2024-05-19 07:22] LABS: CALCIUM 8.5 mg/dL (8.7-10.4)
[2024-05-19 07:24] LABS: BASOPHILS % 1.2 % (0.0-2.0); DIFFERENTIAL COMMENT 0; EOSINOPHILS % 4.4 % (0.0-5.0); HEMATOCRIT. 24.4 % (42.0-52.0); LYMPHOCYTES % 21.5 % (20.0-50.0); MEAN CORPUSCULAR HEMOGLOBIN 24.4 pg (28.0-32.0); MEAN CORPUSCULAR HGB CONC 32.8 g/dL (31.0-37.0); MEAN CORPUSCULAR VOLUME 74.4 fL (80.0-94.0); MEAN PLATELET VOLUME 7.1 fl (7.4-10.4); MONOCYTES % 11.1 % (2.0-8.0); NEUTROPHILS % 61.8 % (40.0-76.0); PLATELET 510 x1000/uL (130-400); RED BLOOD CELL COUNT 3.28 mill/uL (4.7-6.1); RED CELL DISTRIBUTION WIDTH 20.7 % (11.6-14.6); WHITE BLOOD COUNT 4.6 x1000/uL (4.5-11.0)
[2024-05-19 07:26] LABS: CREATININE 0.5 mg/dL (0.6-1.3); GLUCOSE 86 mg/dL (70-105); THYROID STIMULATING HORMONE 4.03 uIU/mL (0.55-4.78)
[2024-05-19 07:27] LABS: UREA NITROGEN BLOOD 6 mg/dL (9-23)
[2024-05-19 08:00] VITALS: BP 115/67; PULSE 88; RESP 20; TEMP 36.28068; O2SAT 98
[2024-05-19] MEDS: SODIUM CHLORIDE 1000MG TABLET PO SCH (10:07)
[2024-05-19 15:28] LABS: OSMOLALITY URINE 280 mOsm/kg (500-850); SODIUM URINE RANDOM 51 mEq/L
[2024-05-19 20:00] VITALS: BP 127/78; PULSE 86; RESP 18; TEMP 36.22512; O2SAT 98
[2024-05-19] MEDS: MAGNESIUM OXIDE 400MG TABLET PO SCH (21:16)
[2024-05-20 07:30] VITALS: BP 135/58; PULSE 92; RESP 20; TEMP 37.11408; O2SAT 96
[2024-05-20 07:34] LABS: BASOPHILS % 0.7 % (0.0-2.0); DIFFERENTIAL COMMENT 0; HEMATOCRIT. 23.9 % (42.0-52.0); HEMOGLOBIN. 7.9 g/dL (14.0-18.0); LYMPHOCYTES % 18.7 % (20.0-50.0); MEAN CORPUSCULAR HEMOGLOBIN 25.1 pg (28.0-32.0); MEAN CORPUSCULAR HGB CONC 33.3 g/dL (31.0-37.0); MEAN CORPUSCULAR VOLUME 75.5 fL (80.0-94.0); MEAN PLATELET VOLUME 7.4 fl (7.4-10.4); MONOCYTES % 10.5 % (2.0-8.0); NEUTROPHILS % 66.1 % (40.0-76.0); PLATELET 472 x1000/uL (130-400); RED BLOOD CELL COUNT 3.16 mill/uL (4.7-6.1); RED CELL DISTRIBUTION WIDTH 20.5 % (11.6-14.6); WHITE BLOOD COUNT 4.5 x1000/uL (4.5-11.0)
[2024-05-20 07:50] LABS: CHLORIDE 96 mEq/L (98-107); POTASSIUM 3.6 mEq/L (3.5-5.1); SODIUM 125 mEq/L (136-145)
[2024-05-20 07:53] LABS: CALCIUM 8.5 mg/dL (8.7-10.4); CARBON DIOXIDE 21 mEq/L (21-32)
[2024-05-20 07:58] LABS: CREATININE 0.4 mg/dL (0.6-1.3); GLUCOSE 80 mg/dL (70-105)
[2024-05-20 07:59] LABS: ALANINE AMINOTRANSFERASE 29 IU/L (10-49)
[2024-05-20 08:00] LABS: ALBUMIN 3.1 g/dL (3.2-4.8); ASPARTATE AMINOTRANSFERASE 40 IU/L (<34); BILIRUBIN DIRECT 0.3 mg/dL (<=3.0); BILIRUBIN TOTAL 0.7 mg/dL (0.1-1.0); PHOSPHORUS 3.8 mg/dL (2.5-4.9); PROTEIN TOTAL 5.8 g/dL (6.0-8.3)
[2024-05-20 08:04] LABS: UREA NITROGEN BLOOD < 5 mg/dL (9-23)
[2024-05-20 20:00] VITALS: BP 130/59; PULSE 98; RESP 18; TEMP 36.6696; O2SAT 97
[2024-05-21 06:27] LABS: BASOPHILS % 0.7 % (0.0-2.0); CHLORIDE 100 mEq/L (98-107); DIFFERENTIAL COMMENT 0; EOSINOPHILS % 3.3 % (0.0-5.0); HEMATOCRIT. 23.6 % (42.0-52.0); HEMOGLOBIN. 7.7 g/dL (14.0-18.0); LYMPHOCYTES % 20.4 % (20.0-50.0); MEAN CORPUSCULAR HEMOGLOBIN 24.6 pg (28.0-32.0); MEAN CORPUSCULAR HGB CONC 32.8 g/dL (31.0-37.0); MEAN CORPUSCULAR VOLUME 74.9 fL (80.0-94.0); MEAN PLATELET VOLUME 7.1 fl (7.4-10.4); MONOCYTES % 9.1 % (2.0-8.0); NEUTROPHILS % 66.5 % (40.0-76.0); PLATELET 449 x1000/uL (130-400); POTASSIUM 3.5 mEq/L (3.5-5.1); RED BLOOD CELL COUNT 3.15 mill/uL (4.7-6.1); RED CELL DISTRIBUTION WIDTH 21.4 % (11.6-14.6); SODIUM 128 mEq/L (136-145); WHITE BLOOD COUNT 4.8 x1000/uL (4.5-11.0)
[2024-05-21 06:29] LABS: CARBON DIOXIDE 20 mEq/L (21-32)
[2024-05-21 06:30] LABS: CALCIUM 8.5 mg/dL (8.7-10.4)
[2024-05-21 06:34] LABS: CREATININE 0.4 mg/dL (0.6-1.3)
[2024-05-21 06:35] LABS: GLUCOSE 93 mg/dL (70-105)
[2024-05-21 06:37] LABS: ALANINE AMINOTRANSFERASE 24 IU/L (10-49); ASPARTATE AMINOTRANSFERASE 35 IU/L (<34); BILIRUBIN DIRECT 0.3 mg/dL (<=3.0); BILIRUBIN TOTAL 0.6 mg/dL (0.1-1.0); PHOSPHORUS 3.6 mg/dL (2.5-4.9); PROTEIN TOTAL 5.6 g/dL (6.0-8.3)
[2024-05-21 06:40] LABS: UREA NITROGEN BLOOD < 5 mg/dL (9-23)
[2024-05-21 08:00] VITALS: BP 138/58; PULSE 99; RESP 23; TEMP 37.503; O2SAT 97
[2024-05-21] MEDS: TRAMADOL HCL/ACETAMINOPHEN 37.5/325MG TABLET PO PRN (13:45)
[2024-05-21 20:00] VITALS: BP 133/52; PULSE 92; RESP 20; TEMP 36.61404; O2SAT 92
[2024-05-22 06:30] LABS: CALCIUM 8.5 mg/dL (8.7-10.4); CARBON DIOXIDE 21 mEq/L (21-32); CHLORIDE 105 mEq/L (98-107); POTASSIUM 3.5 mEq/L (3.5-5.1); SODIUM 133 mEq/L (136-145)
[2024-05-22 06:33] LABS: BASOPHILS % 0.9 % (0.0-2.0); DIFFERENTIAL COMMENT 0; EOSINOPHILS % 4.2 % (0.0-5.0); HEMATOCRIT. 22.5 % (42.0-52.0); HEMOGLOBIN. 7.3 g/dL (14.0-18.0); MEAN CORPUSCULAR HEMOGLOBIN 24.9 pg (28.0-32.0); MEAN CORPUSCULAR HGB CONC 32.3 g/dL (31.0-37.0); MEAN CORPUSCULAR VOLUME 77.1 fL (80.0-94.0); MEAN PLATELET VOLUME 7.2 fl (7.4-10.4); MONOCYTES % 9.3 % (2.0-8.0); NEUTROPHILS % 67.6 % (40.0-76.0); PLATELET 383 x1000/uL (130-400); RED BLOOD CELL COUNT 2.92 mill/uL (4.7-6.1); RED CELL DISTRIBUTION WIDTH 21.6 % (11.6-14.6); WHITE BLOOD COUNT 4.9 x1000/uL (4.5-11.0)
[2024-05-22 06:36] LABS: CREATININE 0.4 mg/dL (0.6-1.3); GLUCOSE 95 mg/dL (70-105)
[2024-05-22 07:21] LABS: UREA NITROGEN BLOOD < 5 mg/dL (9-23)
[2024-05-22 08:00] VITALS: BP 114/46; PULSE 89; RESP 17; TEMP 36.28068; O2SAT 97
[2024-05-22] MEDS: SODIUM CHLORIDE 1000MG TABLET PO SCH (09:00)
[2024-05-22 20:00] VITALS: BP 149/86; PULSE 106; RESP 20; TEMP 36.50292; O2SAT 92
[2024-05-23 08:00] VITALS: BP 126/57; PULSE 105; RESP 20; TEMP 38.28084; O2SAT 99
[2024-05-23 12:15] LABS: EOSINOPHILS % 2.9 % (0.0-5.0); HEMATOCRIT. 25.2 % (42.0-52.0); HEMOGLOBIN. 7.8 g/dL (14.0-18.0); LYMPHOCYTES % 14.9 % (20.0-50.0); MEAN CORPUSCULAR HEMOGLOBIN 23.9 pg (28.0-32.0); MEAN CORPUSCULAR HGB CONC 31.1 g/dL (31.0-37.0); MEAN CORPUSCULAR VOLUME 76.6 fL (80.0-94.0); MEAN PLATELET VOLUME 6.8 fl (7.4-10.4); MONOCYTES % 11.6 % (2.0-8.0); NEUTROPHILS % 69.6 % (40.0-76.0); PLATELET 440 x1000/uL (130-400); RED BLOOD CELL COUNT 3.29 mill/uL (4.7-6.1); RED CELL DISTRIBUTION WIDTH 22.3 % (11.6-14.6); WHITE BLOOD COUNT 5.4 x1000/uL (4.5-11.0)
[2024-05-23 12:17] LABS: CARBON DIOXIDE 23 mEq/L (21-32); CHLORIDE 101 mEq/L (98-107); POTASSIUM 3.6 mEq/L (3.5-5.1); SODIUM 130 mEq/L (136-145)
[2024-05-23 12:18] LABS: CALCIUM 8.6 mg/dL (8.7-10.4)
[2024-05-23 12:21] LABS: DIFFERENTIAL COMMENT 1
[2024-05-23 12:22] LABS: IRON 17 ug/dL (65-175)
[2024-05-23 12:23] LABS: ADD RBC MORPHOLOGY YES; CREATININE 0.5 mg/dL (0.6-1.3); GLUCOSE 131 mg/dL (70-105); UREA NITROGEN BLOOD 8 mg/dL (9-23)
[2024-05-23 12:25] LABS: PHOSPHORUS 3.9 mg/dL (2.5-4.9)
[2024-05-23 12:26] LABS: TOTAL IRON BINDING CAPACITY 453 ug/dl (250-425)
[2024-05-23 13:15] LABS: PLATELET ESTIMATE SLIGHTLY INCREASED; ROULEAUX 1+
[2024-05-23 13:16] LABS: ANISOCYTOSIS 1+; MICROCYTOSIS 2+
[2024-05-23 20:00] VITALS: BP 120/57; PULSE 98; RESP 20; TEMP 35.78064; O2SAT 97
[2024-05-24 07:19] LABS: BASOPHILS % 0.7 % (0.0-2.0); DIFFERENTIAL COMMENT 0; EOSINOPHILS % 4.1 % (0.0-5.0); HEMOGLOBIN. 7.5 g/dL (14.0-18.0); LYMPHOCYTES % 19.5 % (20.0-50.0); MEAN CORPUSCULAR HEMOGLOBIN 24.3 pg (28.0-32.0); MEAN CORPUSCULAR HGB CONC 32.5 g/dL (31.0-37.0); MEAN CORPUSCULAR VOLUME 74.7 fL (80.0-94.0); MEAN PLATELET VOLUME 6.8 fl (7.4-10.4); MONOCYTES % 11.3 % (2.0-8.0); NEUTROPHILS % 64.4 % (40.0-76.0); PLATELET 417 x1000/uL (130-400); RED BLOOD CELL COUNT 3.07 mill/uL (4.7-6.1); RED CELL DISTRIBUTION WIDTH 21.9 % (11.6-14.6); WHITE BLOOD COUNT 4.3 x1000/uL (4.5-11.0)
[2024-05-24 07:27] LABS: CALCIUM 8.8 mg/dL (8.7-10.4); CARBON DIOXIDE 25 mEq/L (21-32); CHLORIDE 101 mEq/L (98-107); POTASSIUM 3.1 mEq/L (3.5-5.1); SODIUM 133 mEq/L (136-145)
[2024-05-24 07:32] LABS: CREATININE 0.4 mg/dL (0.6-1.3); GLUCOSE 96 mg/dL (70-105)
[2024-05-24 07:33] LABS: UREA NITROGEN BLOOD 7 mg/dL (9-23)
[2024-05-24 07:35] LABS: PHOSPHORUS 4.5 mg/dL (2.5-4.9)
[2024-05-24 07:56] VITALS: BP 124/50; PULSE 84; RESP 20; TEMP 36.61404; O2SAT 94
[2024-05-24] MEDS: POTASSIUM CHLORIDE 20MEQ TABLET SR PO NR (13:38)
[2024-05-24 20:00] VITALS: BP 134/44; PULSE 97; RESP 20; TEMP 36.114; O2SAT 97
[2024-05-24] MEDS: MICONAZOLE NITRATE 2% OINT 71GM TOP SCH (20:21)
[2024-05-25 08:00] VITALS: BP 104/54; PULSE 86; RESP 19; TEMP 36.9474; O2SAT 100
[2024-05-25] MEDS: TRAMADOL HCL/ACETAMINOPHEN 37.5/325MG TABLET PO NR (10:25)
[2024-05-25 13:04] LABS: BASOPHILS % 0.6 % (0.0-2.0); DIFFERENTIAL COMMENT 0; EOSINOPHILS % 3.6 % (0.0-5.0); HEMATOCRIT. 26.4 % (42.0-52.0); HEMOGLOBIN. 8.4 g/dL (14.0-18.0); LYMPHOCYTES % 17.9 % (20.0-50.0); MEAN CORPUSCULAR HEMOGLOBIN 24.3 pg (28.0-32.0); MEAN CORPUSCULAR HGB CONC 31.7 g/dL (31.0-37.0); MEAN CORPUSCULAR VOLUME 76.6 fL (80.0-94.0); MEAN PLATELET VOLUME 6.7 fl (7.4-10.4); MONOCYTES % 10.4 % (2.0-8.0); NEUTROPHILS % 67.5 % (40.0-76.0); PLATELET 415 x1000/uL (130-400); RED BLOOD CELL COUNT 3.45 mill/uL (4.7-6.1); RED CELL DISTRIBUTION WIDTH 21.6 % (11.6-14.6); WHITE BLOOD COUNT 5.2 x1000/uL (4.5-11.0)
[2024-05-25 13:11] LABS: CHLORIDE 101 mEq/L (98-107); POTASSIUM 3.8 mEq/L (3.5-5.1); SODIUM 132 mEq/L (136-145)
[2024-05-25 13:12] LABS: CARBON DIOXIDE 22 mEq/L (21-32)
[2024-05-25 13:13] LABS: CALCIUM 8.7 mg/dL (8.7-10.4)
[2024-05-25 13:17] LABS: CREATININE 0.6 mg/dL (0.6-1.3); GLUCOSE 103 mg/dL (70-105)
[2024-05-25 13:18] LABS: UREA NITROGEN BLOOD 9 mg/dL (9-23)
[2024-05-25 13:20] LABS: PHOSPHORUS 4.3 mg/dL (2.5-4.9)
[2024-05-25 20:00] VITALS: BP 101/43; PULSE 104; RESP 22; TEMP 37.28076; O2SAT 100
[2024-05-25] MEDS: SODIUM CHLORIDE 1000MG TABLET PO SCH (21:00)
[2024-05-26 08:00] VITALS: BP 132/68; PULSE 92; RESP 20; TEMP 36.89184; O2SAT 100
[2024-05-26 08:15] LABS: CARBON DIOXIDE 25 mEq/L (21-32); CHLORIDE 102 mEq/L (98-107); POTASSIUM 3.7 mEq/L (3.5-5.1); SODIUM 133 mEq/L (136-145)
[2024-05-26 08:16] LABS: CALCIUM 8.6 mg/dL (8.7-10.4)
[2024-05-26 08:20] LABS: CREATININE 0.5 mg/dL (0.6-1.3); GLUCOSE 89 mg/dL (70-105)
[2024-05-26 08:21] LABS: UREA NITROGEN BLOOD 8 mg/dL (9-23)
[2024-05-26 08:23] LABS: PHOSPHORUS 4.7 mg/dL (2.5-4.9)
[2024-05-26 08:24] LABS: BASOPHILS % 1.4 % (0.0-2.0); DIFFERENTIAL COMMENT 0; EOSINOPHILS % 3.6 % (0.0-5.0); HEMATOCRIT. 24.9 % (42.0-52.0); HEMOGLOBIN. 7.8 g/dL (14.0-18.0); LYMPHOCYTES % 25.7 % (20.0-50.0); MEAN CORPUSCULAR HEMOGLOBIN 24.2 pg (28.0-32.0); MEAN CORPUSCULAR HGB CONC 31.5 g/dL (31.0-37.0); MEAN PLATELET VOLUME 6.9 fl (7.4-10.4); MONOCYTES % 9.9 % (2.0-8.0); NEUTROPHILS % 59.4 % (40.0-76.0); PLATELET 392 x1000/uL (130-400); RED BLOOD CELL COUNT 3.23 mill/uL (4.7-6.1); RED CELL DISTRIBUTION WIDTH 21.6 % (11.6-14.6); WHITE BLOOD COUNT 3.8 x1000/uL (4.5-11.0)
[2024-05-26 20:00] VITALS: BP 126/53; PULSE 62; RESP 18; TEMP 36.55848; O2SAT 95
[2024-05-26] MEDS: TRAMADOL HCL/ACETAMINOPHEN 37.5/325MG TABLET PO PRN (20:12)
[2024-05-27 08:00] VITALS: BP 137/54; PULSE 50; RESP 20; TEMP 36.3918; O2SAT 94
[2024-05-27 20:00] VITALS: BP 126/55; PULSE 95; RESP 19; TEMP 38.50308; O2SAT 97
[2024-05-27] MEDS ORDERED: ACETAMINOPHEN 325MG TABLET PO ONE (20:15)
[2024-05-27] MEDS: ACETAMINOPHEN 325MG TABLET PO NR (20:19)
[2024-05-27 20:25] LABS: CLARITY URINE CLOUDY (CLEAR); COLOR URINE YELLOW (YELLOW); GLUCOSE URINE NEGATIVE (NEGATIVE); KETONES URINE NEGATIVE (NEGATIVE); LEUKOCYTE ESTERASE URINE 3+ (NEGATIVE); NITRITE URINE POSITIVE (NEGATIVE); OCCULT BLOOD URINE TRACE (NEGATIVE); PH URINE 7.5 (4.5-8.0); PROTEIN URINE NEGATIVE (NEGATIVE); SPECIFIC GRAVITY URINE 1.013 (1.005-1.030)
[2024-05-27 20:39] LABS: BACTERIA URINE 4+; RBC URINE 0-2 /hpf (0-2); SQUAMOUS EPITHELIAL CELL URINE FEW /lpf (RARE/1+); WBC URINE TNTC /hpf (0-2)
[2024-05-27 21:19] VITALS: TEMP 37.11408
[2024-05-28 08:00] VITALS: BP 126/51; PULSE 90; RESP 21; TEMP 37.61412; O2SAT 95
[2024-05-28 11:53] LABS: CHLORIDE 103 mEq/L (98-107); POTASSIUM 3.5 mEq/L (3.5-5.1); SODIUM 135 mEq/L (136-145)
[2024-05-28 11:54] LABS: CALCIUM 8.7 mg/dL (8.7-10.4); CARBON DIOXIDE 26 mEq/L (21-32)
[2024-05-28 11:59] LABS: CREATININE 0.5 mg/dL (0.6-1.3); GLUCOSE 137 mg/dL (70-105); UREA NITROGEN BLOOD 9 mg/dL (9-23)
[2024-05-28 12:01] LABS: ALANINE AMINOTRANSFERASE 36 IU/L (10-49); ALBUMIN 2.9 g/dL (3.2-4.8); ASPARTATE AMINOTRANSFERASE 52 IU/L (<34); BASOPHILS % 0.7 % (0.0-2.0); BILIRUBIN DIRECT 0.3 mg/dL (<=3.0); DIFFERENTIAL COMMENT 0; LYMPHOCYTES % 14.7 % (20.0-50.0); MEAN CORPUSCULAR HEMOGLOBIN 24.1 pg (28.0-32.0); MEAN CORPUSCULAR VOLUME 75.2 fL (80.0-94.0); MEAN PLATELET VOLUME 7.1 fl (7.4-10.4); MONOCYTES % 8.1 % (2.0-8.0); NEUTROPHILS % 73.5 % (40.0-76.0); PHOSPHORUS 4.6 mg/dL (2.5-4.9); PLATELET 447 x1000/uL (130-400); RED BLOOD CELL COUNT 2.93 mill/uL (4.7-6.1); WHITE BLOOD COUNT 4.8 x1000/uL (4.5-11.0)
[2024-05-28 12:02] LABS: BILIRUBIN TOTAL 0.6 mg/dL (0.1-1.0); PROTEIN TOTAL 6.1 g/dL (6.0-8.3)
[2024-05-28] MEDS: FERROUS SULFATE 325MG TABLET PO SCH (17:08)
[2024-05-28] MEDS: MAGNESIUM 2 G PREMIX 50 ML IV NR (19:45)
[2024-05-29] VITALS (7 sets, daily range): BP systolic 132–158; BP diastolic 60–70; PULSE 75–101; RESP 18–20; TEMP 36.50292–36.72516; O2SAT 97–99
[2024-05-29 09:44] LABS: BASOPHILS % 0.7 % (0.0-2.0); DIFFERENTIAL COMMENT 0; EOSINOPHILS % 3.1 % (0.0-5.0); HEMOGLOBIN. 8.4 g/dL (14.0-18.0); LYMPHOCYTES % 22.6 % (20.0-50.0); MEAN CORPUSCULAR HEMOGLOBIN 24.5 pg (28.0-32.0); MEAN CORPUSCULAR HGB CONC 32.4 g/dL (31.0-37.0); MEAN CORPUSCULAR VOLUME 75.5 fL (80.0-94.0); MEAN PLATELET VOLUME 7.2 fl (7.4-10.4); MONOCYTES % 7.5 % (2.0-8.0); NEUTROPHILS % 66.1 % (40.0-76.0); PLATELET 460 x1000/uL (130-400); RED BLOOD CELL COUNT 3.45 mill/uL (4.7-6.1); RED CELL DISTRIBUTION WIDTH 20.7 % (11.6-14.6)
[2024-05-29 10:16] LABS: CHLORIDE 102 mEq/L (98-107); POTASSIUM 3.6 mEq/L (3.5-5.1); SODIUM 135 mEq/L (136-145)
[2024-05-29 10:20] LABS: CALCIUM 8.6 mg/dL (8.7-10.4); CARBON DIOXIDE 26 mEq/L (21-32)
[2024-05-29 10:22] LABS: UREA NITROGEN BLOOD 7 mg/dL (9-23)
[2024-05-29 10:24] LABS: PROTEIN TOTAL 6.1 g/dL (6.0-8.3)
[2024-05-29 10:25] LABS: CREATININE 0.5 mg/dL (0.6-1.3); GLUCOSE 132 mg/dL (70-105)
[2024-05-29 10:26] LABS: ALANINE AMINOTRANSFERASE 31 IU/L (10-49)
[2024-05-29 10:27] LABS: ALBUMIN 2.9 g/dL (3.2-4.8); ASPARTATE AMINOTRANSFERASE 42 IU/L (<34); BILIRUBIN DIRECT 0.4 mg/dL (<=3.0); LACTATE DEHYDROGENASE 219 IU/L (120-246)
[2024-05-29 10:28] LABS: BILIRUBIN TOTAL 0.8 mg/dL (0.1-1.0); PHOSPHORUS 4.3 mg/dL (2.5-4.9)
[2024-05-29] MEDS ORDERED: LOSA25TA26 PO (13:12)
[2024-05-29] MEDS ORDERED: MAGN400T7 PO (13:12)
[2024-05-29] MEDS ORDERED: MICO14CR6 TOP (13:12)
[2024-05-29] MEDS ORDERED: FERR-63 PO (13:12)
[2024-05-29] MEDS ORDERED: QUET25TA PO (13:12)
[2024-05-29] MEDS ORDERED: SENN1TAB35 PO (13:12)
[2024-05-29] MEDS ORDERED: AMLO5TAB88 PO (13:12)
[2024-05-29] MEDS ORDERED: TOPUD PO (13:12)
[2024-05-29] MEDS ORDERED: SODI1TAB3 PO (13:12)
[2024-05-29] MEDS ORDERED: FAMO20TA8 PO (13:12)
[2024-05-29] MEDS ORDERED: POLY17PO43 PO (13:12)
[2024-05-29] MEDS ORDERED: MELA3TAB40 PO (13:12)
[2024-05-30 09:07] LABS: IMMUNOGLOBULIN A 387 mg/dL (61-437); IMMUNOGLOBULIN G 1386 mg/dL (603-1613); IMMUNOGLOBULIN M 104 mg/dL (15-143)
== END 2024-05-29 16:45 | DRG 551 ==
PROVIDERS: ADMIT Psychiatry & Neurology Neurology; ATTEND Internal Medicine
PROC: 30233N1 Transfusion of Nonautologous Red Blood Cells into Peripheral Vein, Percutaneous Approach (ICD-10-PCS; 2024-05-11)
PROC: 05HM33Z Insertion of Infusion Device into Right Internal Jugular Vein, Percutaneous Approach (ICD-10-PCS; principal; 2024-05-16)
DX: M48.02 Spinal stenosis, cervical region (principal); G82.50 Quadriplegia, unspecified; M47.12 Other spondylosis with myelopathy, cervical region; G93.40 Encephalopathy, unspecified; Z16.12 Extended spectrum beta lactamase (ESBL) resistance; K86.2 Cyst of pancreas; E87.1 Hypo-osmolality and hyponatremia; F01.53 Vascular dementia, unspecified severity, with mood disturbance; N39.0 Urinary tract infection, site not specified; I10 Essential (primary) hypertension; D50.9 Iron deficiency anemia, unspecified; F10.10 Alcohol abuse, uncomplicated; E87.6 Hypokalemia; G89.29 Other chronic pain; K59.00 Constipation, unspecified; M54.9 Dorsalgia, unspecified; B96.20 Unspecified Escherichia coli [E. coli] as the cause of diseases classified elsewhere; K74.60 Unspecified cirrhosis of liver; E11.65 Type 2 diabetes mellitus with hyperglycemia; Z68.34 Body mass index [BMI] 34.0-34.9, adult; E78.5 Hyperlipidemia, unspecified; F41.1 Generalized anxiety disorder; E83.42 Hypomagnesemia; N40.0 Benign prostatic hyperplasia without lower urinary tract symptoms; R53.82 Chronic fatigue, unspecified; G47.00 Insomnia, unspecified; M54.50 Low back pain, unspecified; M79.671 Pain in right foot; R07.9 Chest pain, unspecified; R26.9 Unspecified abnormalities of gait and mobility; R39.15 Urgency of urination; R55 Syncope and collapse; R60.9 Edema, unspecified; M79.672 Pain in left foot; M79.89 Other specified soft tissue disorders; R05.9 Cough, unspecified; R06.00 Dyspnea, unspecified; Z63.4 Disappearance and death of family member; Z91.81 History of falling; Z74.01 Bed confinement status; Z82.49 Family history of ischemic heart disease and other diseases of the circulatory system; Z85.46 Personal history of malignant neoplasm of prostate
CPT/HCPCS: 36415; 36573; 71045; 72070; 72110; 73630; 76700; 80048; 80053; 80076; 81003; 82140; 82270; 82533; 82728; 82784; 82962; 83540; 83550; 83615; 83735; 83930; 83935; 84100; 84145; 84153; 84300; 84443; 85014; 85018; 85025; 85044; 86334; 86850; 86880; 86900; 86920; 87077; 87186; 92523; 92610; 93306; 93923; 93970; 97110; 97112; 97150; 97162; 97166; 97530; 97535; 97542; A4565; A6261; C1725; C1769; J3475; J3490; J7030; J7050; J7121; P9016; A5200